=== PATIENT | male | born 1970 | race Caucasian/White ===

== ENCOUNTER 2020-10-27 11:02 | Emergency (ER) | payer OTHER ==
[~2020-10-27] VITALS: Ht 180 cm; Wt 82.0 kg
--- NOTE | 2020-10-27 11:26 | ED Dyspnea ---
General Stated Complaint: SOB; COVID+ Source of Information: Patient Exam Limitations: No Limitations History of Present Illness Date Seen by Provider: Oct 27, 2020 Time Seen by Provider: 11:10 Initial Comments 50-year-old male with past medical history of hypertension coming in due to feeling short of breath. He began having fevers, body aches, and cough on October 17. He tested positive for Covid at a walk-in clinic the next day on the . Slowly improved and he has not had a fever for a couple days. Yesterday he began feeling more short of breath, and today it was worse. He calls it moderate to severe, worse with exertion, better with rest. He has never felt this way before. He is a non-smoker, and states he has healthy lungs that he knows of. Otherwise denying any recent fever, nausea, vomiting, diarrhea, abdominal pain, chest pain, focal weakness or numbness, or any other concerns. Allergies and Home Medications Allergies Coded Allergies: No Known Drug Allergies (Unverified , 10/27/20) Home Medications Dexamethasone 6 Mg Tablet, 6 MG PO DAILY Prescribed by: YUMIKO MIRZA on 10/27/20 4209 Patient Home Medication List Home Medication List Reviewed: Yes Review of Systems Review of Systems Constitutional: chills; No fever; malaise EENTM: No blurred vision Respiratory: cough, short of breath Cardiovascular: No chest pain Gastrointestinal: No abdominal pain, No constipation, No diarrhea, No nausea, No vomiting Genitourinary: No dysuria, No frequency Musculoskeletal: No back pain Skin: No rash Psychiatric/Neurological: Denies Anxiety, Denies Depressed Endocrine: No Symptoms Reported Hematologic/Lymphatic: No Symptoms Reported All Other Systems Reviewed Negative Unless Noted: Yes Past Dbtheje-Kadnfh-Ehpyct Hx Patient Social History Tobacco Use?: No Substance use?: No Alcohol Use?: Yes Alcohol Frequency: Once in a while Past Medical History Surgeries: Yes (R shoulder surgery) Physical Exam Vital Signs Vital Signs - First Documented 10/27/20 10/27/20 11:31 12:30 Temp 36.6 Pulse 100 Resp 18 B/P (MAP) 105/63 (77) Pulse Ox 88 O2 Delivery Room Air O2 Flow Rate 2.00 Capillary Refill : Height, Weight, BMI Height: '" Weight: lbs. oz. kg; BMI Method: General Appearance: No Apparent Distress, WD/WN HEENT: PERRL/EOMI, Normal ENT Inspection, Pharynx Normal Neck: Full Range of Motion, Normal Inspection, Non Tender, Supple Respiratory: Chest Non Tender, No Accessory Muscle Use, No Respiratory Distress, Crackles, Other Cardiovascular: Regular Rate, Rhythm, No Edema, Normal Peripheral Pulses Gastrointestinal: Normal Bowel Sounds, Non Tender, Soft; No Distended, No Gu arding Extremity: Normal Capillary Refill, Normal Inspection, Non Tender, No Calf Tenderness Neurologic/Psychiatric: Alert, Oriented x3, No Motor/Sensory Deficits, Normal Mood/Affect Skin: Normal Color, Warm/Dry Lymphatic: No Adenopathy Focused Exam Sepsis Stage: Ruled Out Reason for ruling out sepsis: not hypotensive, not febrile, WBC 7, SOB but has COVID which fits Lactate Level 10/27/20 11:27: Lactic Acid Level 2.20*H 10/27/20 13:40: Lactic Acid Level 1.70 Respiratory: Chest Non Tender, No Accessory Muscle Use, No Respiratory Distress, Crackles Cardiovascular: Regular Rate, Rhythm, No Edema, Normal Peripheral Pulses Capillary Refill: Less Than 3 Seconds Peripheral Pulses: 2+ Radial Pulses (R), 2+ Radial Pulses (L) Skin: normal color, warm/dry Lactic Acid Level Laboratory Tests Test 10/27/20 11:27 10/27/20 13:40 Lactic Acid Level 2.20 MMOL/L (0.50-2.00) *H 1.70 MMOL/L (0.50-2.00) Within 3hrs of presentation: Other (lactate was ordered with COVID protocol, slightly elevated at 2.2, given IVF but not full 30cc/kg as I do not believe he is septic at this time) Progress/Results/Core Measures Results/Orders Lab Results Laboratory Tests Test 10/27/20 11:27 10/27/20 13:40 Range/Units White Blood Count 7.0 4.3-11.0 10^3/uL Red Blood Count 5.27 4.30-5.52 10^6/uL Hemoglobin 17.0 13.3-17.7 g/dL Hematocrit 48 40-54 % Mean Corpuscular Volume 92 80-99 fL Mean Corpuscular Hemoglobin 32 25-34 pg Mean Corpuscular Hemoglobin Concent 35 32-36 g/dL Red Cell Distribution Width 12.2 10.0-14.5 % Platelet Count 161 130-400 10^3/uL Mean Platelet Volume 10.1 9.0-12.2 fL Immature Granulocyte % (Auto) 1 % Neutrophils (%) (Auto) 82 H 42-75 % Lymphocytes (%) (Auto) 12 12-44 % Monocytes (%) (Auto) 6 0-12 % Eosinophils (%) (Auto) 0 0-10 % Basophils (%) (Auto) 0 0-10 % Neutrophils # (Auto) 5.8 1.8-7.8 X 10^3 Lymphocytes # (Auto) 0.8 L 1.0-4.0 X 10^3 Monocytes # (Auto) 0.4 0.0-1.0 X 10^3 Eosinophils # (Auto) 0.0 0.0-0.3 10^3/uL Basophils # (Auto) 0.0 0.0-0.1 10^3/uL Immature Granulocyte # (Auto) 0.0 0.0-0.1 10^3/uL Prothrombin Time 13.1 12.2-14.7 SEC INR Comment 1.0 0.8-1.4 Activated Partial Thromboplast Time 28 24-35 SEC D-Dimer 1.61 H 0.00-0.49 UG/ML Sodium Level 129 L 135-145 MMOL/L Potassium Level 4.2 3.6-5.0 MMOL/L Chloride Level 90 L 98-107 MMOL/L Carbon Dioxide Level 22 21-32 MMOL/L Anion Gap 17 H 5-14 MMOL/L Blood Urea Nitrogen 33 H 7-18 MG/DL Creatinine 1.65 H 1.50 H 0.60-1.30 MG/DL Estimat Glomerular Filtration Rate 44 49 BUN/Creatinine Ratio 20 Glucose Level 117 H 70-105 MG/DL Lactic Acid Level 2.20 *H 1.70 0.50-2.00 MMOL/L Calcium Level 8.5 8.5-10.1 MG/DL Corrected Calcium 8.8 8.5-10.1 MG/DL Total Bilirubin 0.5 0.1-1.0 MG/DL Aspartate Amino Transf (AST/SGOT) 69 H 5-34 U/L Alanine Aminotransferase (ALT/SGPT) 42 0-55 U/L Alkaline Phosphatase 59 40-136 U/L Troponin I < 0.30 <0.30 NG/ML C-Reactive Protein 13.40 H <0.50 MG/DL Total Protein 6.9 6.4-8.2 GM/DL Albumin 3.6 3.2-4.5 GM/DL Smear Scan OK My Orders Orders - YUMIKO MIRZA MD Vital Signs: Every 4 Hours (Or (10/27/20 11:26) Monitor-Rhythm Ecg Trace Only (10/27/20 11:) Ed Iv/Invasive Line Start (10/27/20:) Cbc With Automated Diff (10/27/20) Comprehensive Metabolic Panel (10/27/20) Ferritin (10/27/20:) LDH (10/27/20:) Crp Fs (10/27/20) Troponin I Fs (10/27/20:) Lactic Acid Analyzer (10/27/20:) Protime With Inr (10/27/20:) Partial Thromboplastin Time (10/27/20:) Fibrin Degradation Products (10/27/20:) Fibrinogen (10/27/20:) Ekg Tracing (10/27/20:) Acetaminophen Tablet/Caplet (Tylenol T (10/27/20 11:30) Covid-19 External Lab Results (10/27/20 11:) Dexamethasone Injection (Decadron Injec (10/27/20 11:30) Chest 1 View Ap/Pa Only (10/27/20 11:26) Lactated Ringers (Lr 1000 Ml Iv Solution (10/27/20 12:15) Procalcitonin (Pct) (10/27/20 12:11) Ct Angio Chest W (10/27/20 12:13) Iohexol Injection (Omnipaque 350 Mg/Ml 1 (10/27/20 12:30) Received Contrast (Hold Metformin- Contr (10/27/20 12:30) Sodium Chloride Flush (Catheter Flush Sy (10/27/20 12:30) Ns (Ivpb) (Sodium Chloride 0.9% Ivpb Bag (10/27/20 12:30) Lactated Ringers (Lr 1000 Ml Iv Solution (10/27/20 12:45) Creatinine & Gfr (10/27/20 13:30) Blood Culture (10/27/20 13:08) Medications Given in ED Current Medications Medications Dose Ordered Sig/Brigette Route Start Time Stop Time Status Last Admin Dose Admin Acetaminophen 650 mg ONCE ONCE PO 10/27/20 11:30 10/27/20 11:31 DC 10/27/20 11:36 650 MG Dexamethasone Sodium Phosphate 6 mg ONCE ONCE IV 10/27/20 11:30 10/27/20 11:31 DC 10/27/20 11:36 6 MG Iohexol 100 ml ONCE ONCE IV 10/27/20 12:30 10/27/20 12:31 DC 10/27/20 12:45 100 ML Lactated Ringer's 1,000 ml @ 0 mls/hr Q0M ONCE IV 10/27/20 12:15 10/27/20 12:16 DC 10/27/20 12:17 1,000 MLS/HR Lactated Ringer's 1,000 ml @ 0 mls/hr Q0M ONCE IV 10/27/20 12:45 10/27/20 12:48 DC 10/27/20 12:45 1,000 MLS/HR Sodium Chloride 10 ml NEEDED PRN IV 10/27/20 12:30 10/27/20 12:45 10 ML Sodium Chloride 100 ml ONCE ONCE IV 10/27/20 12:30 10/27/20 12:31 DC 10/27/20 12:45 100 ML Vital Signs/I&O 10/27/20 10/27/20 10/27/20 11:31 12:30 14:34 Temp 36.6 36.5 Pulse 100 79 Resp 18 16 B/P (MAP) 105/63 (77) 122/68 Pulse Ox 88 97 94 O2 Delivery Room Air Nasal Cannula Nasal Cannula O2 Flow Rate 2.00 2.00 Progress Progress Note : Progress Note 50-year-old male with above history coming in due to feeling short of breath. ABCs were intact and vitals were stable on presentation other than his oxygen saturation was around 87 to 88%. He was placed on 2 L oxygen with improvement to 94%. EKG ordered and interpreted by me showing normal sinus rhythm with a rate of 94, normal axis, narrow QRS, no significant ST or T wave abnormalities. Chest x-ray ordered and interpreted by me showing bilateral hazy opacities consistent with Covid. Basic labs as well as typical Covid management labs ordered. Given he is hypoxic and on oxygen he was given steroids. Labs significant for white blood count of 7, lactate slightly elevated at 2.2, negative troponin, elevated CRP, and elevated creatinine with an BOB. An IV was placed and he was given a bolus of IV fluids given his elevated lactic acid. Despite his elevated lactic acid, I do not believe the patient is septic. He is not febrile, has a normal white blood count, and has other reasoning to have an elevated lactic acid. Specifically, he has Covid and has had significantly decreased p.o. over the past week. He was given a bolus of IV fluids, but not the full 30 cc/kg, because I believe he does not need that at this time. Repeat lactate is normal. Repeat creatinine improved, and he is tolerating PO, so I believe this number will continue to improve. D-dimer was positive, and CTA was ordered at that time to assess for PE which was negative. The patient did transiently improve with fluids and the steroids. His oxygen requirements went down at that point and he was tolerating room air for roughly an hour around 92%. With ambulation he dropped back down to roughly 88%. Given the status of the hospital system, I believe it is appropriate for him to be discharged home if he has the ability to get home oxygen. I will order home oxygen for him as well as sent a prescription for steroids. I discussed that he needs to buy a pulse oximeter, and if while on oxygen his oxygen saturation is in the 80s he needs to call 911 or have someone immediately drive him to the emergency department. He is agreeable to this. I discussed if his symptoms worsen, develops any chest pain, or any other concerns that he should immediately return here. I believe he is stable at this time, although it is always possible he would worsen and need to come back. I do believe it is appropriate for him to go home though. He was discharged with strict return precautions. Initial ECG Impression Date: Oct 27, 2020 Initial ECG Impression Time: 11:32 Initial ECG Rate: 94 Initial ECG Rhythm: Normal Sinus Comment Narrow QRS, normal axis, no significant ST changes or T wave abnormalities Diagnostic Imaging Diagonstic Imaging: CT Plain Films/CT/US/NM/MRI: chest Comments [facility] [place], [place] NAME: EM[facility] JONES [facility] REC#: [id number] PT STATUS: REG ER : 1970 PHYSICIAN: YUMIKO MIRZA MD ADMIT DATE: 10/27/20/ER FS Draft Date of Exam:10/27/20 CT ANGIO CHEST W PROCEDURE: CT angiography of the chest with contrast. TECHNIQUE: Multiple contiguous axial images were obtained through the chest after uneventful bolus administration of intravenous contrast. 3D reconstructed CTA MIP acquisitions were also performed. Auto Exposure Controls were utilized during the CT exam to meet ALARA standards for radiation dose reduction. INDICATION: Shortness of breath. Patient is COVID 19 positive. Patient also has elevated d-dimer. No prior studies are available for comparison. Evaluation of the pulmonary arterial system is without thromboembolism. No filling defects are seen within central, segmental branches. Thoracic aorta is normal caliber. As no dissection. No pericardial or pleural fluid is identified. No axillary lymphadenopathy is identified. No definite mediastinal or hilar lymphadenopathy is detected. Parenchymal evaluation does show peripheral groundglass infiltrates bilateral upper lobes as well as bilateral lower lobes consistent with COVID 19 pneumonia. Imaging below the diaphragm does show some circumscribed low low-attenuation lesions in the liver consistent with cysts. IMPRESSION: 1. No evidence of pulmonary embolism or thoracic aortic dissection. 2. Diffuse bilateral groundglass pulmonary infiltrates consistent with COVID 19 pneumonia. Report was faxed to [facility] by sagar at 1:00PM. Dictated on workstation # [id number] Dict: 10/27/20 1249 Trans: 10/27/20 1300 SAGAR [id number] Interpreted by: ORQUIDEA HOGAN MD Electronically signed by: Departure Impression Primary Impression: COVID Additional Impressions: Hypoxia BOB (acute kidney injury) Disposition: 01 HOME, SELF-CARE Condition: Stable Departure-Patient Inst. Decision time for Depature: 14:40 Referrals: BESSIE THRASHER APRN (PCP) Primary Care Physician [facility] (Family) Primary Care Physician Patient Instructions: Acute Kidney Injury (DC), COVID-19 (DC), Oxygen Therapy, Adult (DC) Add. Discharge Instructions: You were seen in the emergency department because you were feeling short of breath. Your oxygen was a little low, and was around 88% when he got here. We put you on 2 L oxygen and you improved. Your kidney function was a little down, and it shows that you are a little dehydrated, so we gave you IV fluids as well. I want you to purchase a pulse oximeter at [facility] and check your oxygen every couple hours while awake. If you are 89% or lower consistently even after resting while on oxygen, then you will need to call 911 or have [address] drive you to the ER. If you find you are needing to turn up your oxygen to 4 or 6 liters to keep your oxygen levels above 90% then you should come in to the ER to be rechecked. Scripts Dexamethasone (Decadron) 6 Mg Tablet 6 MG PO DAILY for 7 Days, #7 TAB 0 Refills Prov: YUMIKO MIRZA MD 10/27/20 YUMIKO MIRZA MD Oct 27, 2020 11:26
[2020-10-27] MEDS ORDERED: ACETAMINOPHEN 325 MG TABLET PO ONE (11:30)
[2020-10-27 11:41] LABS: HEMATOCRIT 48 % (40-54); MEAN CORPUSCULAR HEMOGLOBIN 32 pg (25-34); MEAN CORPUSCULAR HGB CONC 35 g/dL (32-36); MEAN CORPUSCULAR VOLUME 92 fL (80-99); PLATELET COUNT 161 10^3/uL (130-400)
[2020-10-27 11:42] LABS: BASOPHILS % (AUTO) 0 % (0-10); EOSINOPHILS % (AUTO) 0 % (0-10); LYMPHOCYTES # (AUTO) 0.8 X 10^3 (1.0-4.0); LYMPHOCYTES % (AUTO) 12 % (12-44); MEAN PLATELET VOLUME 10.1 fL (9.0-12.2); MONOCYTES # (AUTO) 0.4 X 10^3 (0.0-1.0); MONOCYTES % (AUTO) 6 % (0-12); NEUTROPHILS # (AUTO) 5.8 X 10^3 (1.8-7.8); NEUTROPHILS % (AUTO) 82 % (42-75)
--- NOTE | 2020-10-27 11:56 | Diagnostic Imaging Report ---
EXAMINATION: Chest radiograph, portable AP view. DATE: 10/27/2020 11:42 AM INDICATION: 50-year-old male, shortness of breath. COVID positive. COMPARISON: None. FINDINGS: Heart size and mediastinal contours are unremarkable. There is no identified pneumothorax. There is no large pleural effusion. There is multifocal bilateral lung consolidation. IMPRESSION: 1. Multifocal bilateral lung consolidation which would be consistent with provided history of COVID 19 infection and multifocal pneumonia/pneumonitis although is not a specific imaging appearance. Report was faxed to [facility] by len at 11:56AM. Dictated by: Dictated on workstation # [id number]
[2020-10-27 11:58] LABS: SMEAR SCAN COMMENT OK; SODIUM 129 MMOL/L (135-145)
[2020-10-27 11:59] LABS: ALANINE AMINOTRANSFERASE 42 U/L (0-55); ALKALINE PHOSPHATASE 59 U/L (40-136); BILIRUBIN,TOTAL 0.5 MG/DL (0.1-1.0); BUN/CREATININE RATIO 20; CALCIUM 8.5 MG/DL (8.5-10.1); CARBON DIOXIDE 22 MMOL/L (21-32); CHLORIDE 90 MMOL/L (98-107); CREATININE SERUM 1.65 MG/DL (0.60-1.30); GFR ESTIMATED 44; GLUCOSE 117 MG/DL (70-105); POTASSIUM 4.2 MMOL/L (3.6-5.0); TOTAL PROTEIN 6.9 GM/DL (6.4-8.2)
[2020-10-27 12:00] LABS: ALBUMIN 3.6 GM/DL (3.2-4.5)
[2020-10-27 12:01] LABS: PROTHROMBIN TIME PATIENT 13.1 SEC (12.2-14.7)
[2020-10-27 12:02] LABS: FIBRIN DEGRADATION PRODUCTS 1.61 UG/ML (0.00-0.49)
[2020-10-27] MEDS ORDERED: LACTATED RINGERS 1,000 ML IV ONE ×2 (12:15→12:45)
[2020-10-27] MEDS ORDERED: NS 100 ML (IVPB) BAG IV ONE (12:30)
[2020-10-27] MEDS ORDERED: IOHEXOL 350 MG/ML 100 ML (OMNIPAQUE 350) VIAL IV ONE (12:30)
[2020-10-27] MEDS ORDERED: CATHETER FLUSH 10 ML SYR IV PRN (12:30)
[2020-10-27] MEDS ORDERED: HOLD METFORMIN - RECEIVED CONTRAST 20 ML VIAL IV SCH (12:30)
--- NOTE | 2020-10-27 13:00 | Diagnostic Imaging Report ---
PROCEDURE: CT angiography of the chest with contrast. TECHNIQUE: Multiple contiguous axial images were obtained through the chest after uneventful bolus administration of intravenous contrast. 3D reconstructed CTA MIP acquisitions were also performed. Auto Exposure Controls were utilized during the CT exam to meet ALARA standards for radiation dose reduction. INDICATION: Shortness of breath. Patient is COVID 19 positive. Patient also has elevated d-dimer. No prior studies are available for comparison. Evaluation of the pulmonary arterial system is without thromboembolism. No filling defects are seen within central, segmental branches. Thoracic aorta is normal caliber. As no dissection. No pericardial or pleural fluid is identified. No axillary lymphadenopathy is identified. No definite mediastinal or hilar lymphadenopathy is detected. Parenchymal evaluation does show peripheral groundglass infiltrates bilateral upper lobes as well as bilateral lower lobes consistent with COVID 19 pneumonia. Imaging below the diaphragm does show some circumscribed low low-attenuation lesions in the liver consistent with cysts. IMPRESSION: 1. No evidence of pulmonary embolism or thoracic aortic dissection. 2. Diffuse bilateral groundglass pulmonary infiltrates consistent with COVID 19 pneumonia. Report was faxed to [facility] by len at 1:00PM. Dictated by: Dictated on workstation # [id number]
[2020-10-27 14:06] LABS: CREATININE SERUM 1.5 MG/DL (0.60-1.30)
[2020-10-27] MEDS ORDERED: DEXA6TAB6 PO (14:07)
[2020-10-27 14:34] VITALS: BP 122/68
== END 2020-10-27 14:45 | disposition home or self-care (01) ==
LOC: ER FS 11:04
DX: U07.1 COVID-19 (principal); R09.02 Hypoxemia; N17.9 Acute kidney failure, unspecified; I10 Essential (primary) hypertension
CPT/HCPCS: 36415; 71045; 71275; 80053; 82565; 82728; 83605; 83615; 84145; 84484; 85025; 85379; 85384; 85610; 85730; 86141; 87040; 93005; 93041

== ENCOUNTER 2020-10-31 11:37 | Emergency (ER) | payer OTHER ==
[~2020-10-31] VITALS: Ht 180 cm; Wt 82.0 kg
[~2020-10-31 11:37] MED LIST: DEXA6TAB6 PO
[2020-10-31] MEDS ORDERED: AZITHROMYCIN INJECTION 500 MG in NS (IVPB) 250 ML IV ONE (12:00)
[2020-10-31] MEDS ORDERED: ACETAMINOPHEN 325 MG TABLET PO ONE (12:00)
[2020-10-31] MEDS ORDERED: LACTATED RINGERS 1,000 ML IV SCH (12:00)
[2020-10-31] MEDS ORDERED: cefTRIAXone 1,000 MG in WATER (STERILE) FOR INJECTION 10 ML IV ONE (12:00)
--- NOTE | 2020-10-31 12:03 | ED Respiratory ---
General Chief Complaint: Respiratory Problems Stated Complaint: HYPOXIA, COVID+ Source: patient, family Exam Limitations: no limitations History of Present Illness Date Seen by Provider: Oct 31, 2020 Time Seen by Provider: 11:40 Initial Comments 50-year-old male with no significant past medical history that was previously seen by me last week for Covid symptoms. In brief, symptomatic on the , tested positive at an outside facility on the . Symptoms lately have just been cough and shortness of breath. I discharged him on after setting him up with home oxygen given he only required roughly 2 L intermittently. He was discharged with steroids at that time given the oxygen requirement. He stat es he bought an oxygen probe and has been frequently testing his vitals. He says his saturation has ranged between the 70s to 90s. This morning he states he was unable to get his oxygen above the 80s despite having it turned as high up as he could. He is unsure of how many liters this was, because he states he was confused on the system. EMS reports his oxygen was in the low 80s on their arrival. They gave him a DuoNeb en route. He denies any structural lung disease such as COPD. Is otherwise denying any other acute complaints. Allergies and Home Medications Allergies Coded Allergies: No Known Drug Allergies (Unverified , 10/27/20) Home Medications Dexamethasone 6 Mg Tablet, 6 MG PO DAILY Prescribed by: YUMIKO MIRZA on 10/27/20 8044 Patient Home Medication List Home Medication List Reviewed: Yes Review of Systems Review of Systems Constitutional: chills; No fever EENTM: No blurred vision Respiratory: cough, short of breath Cardiovascular: No chest pain Gastrointestinal: No abdominal pain Genitourinary: No dysuria Musculoskeletal: No back pain Skin: No rash Psychiatric/Neurological: Denies Anxiety Hematologic/Lymphatic: No Symptoms Reported Immunological/Allergic: no symptoms reported All Other Systems Reviewed Negative Unless Noted: Yes Past Pocohpm-Mgdddt-Ezlhyx Hx Patient Social History Tobacco Use?: No Use of E-Cig and/or Vaping dev: No Substance use?: No Alcohol Use?: Yes Alcohol Frequency: Once in a while Past Medical History Surgery/Hospitalization HX: Denies Surgeries: Yes (R shoulder surgery) Physical Exam Vital Signs - First Documented 10/31/20 12:00 Temp 37.2 Pulse 123 Resp 37 B/P (MAP) 134/67 (89) Pulse Ox 93 O2 Delivery Nasal Cannula O2 Flow Rate 2.00 Capillary Refill : Height: '" Weight: lbs. oz. kg; 25.00 BMI Method: General Appearance: WD/WN, no apparent distress HEENT: PERRL/EOMI, normal ENT inspection, pharynx normal Neck: non-tender, full range of motion, supple, normal inspection Respiratory: chest non-tender, no accessory muscle use, crackles, other (tachypnea) Cardiovascular: no edema, no murmur, tachycardia Gastrointestinal: normal bowel sounds, non tender, soft; No distended, No guarding, No rebound Extremities: normal range of motion, non-tender, normal inspection, no pedal edema, no calf tenderness Neurologic/Psychiatric: no motor/sensory deficits, alert, normal mood/affect Skin: normal color, warm/dry Lymphatic: no adenopathy Focused Exam Lactate Level 10/31/20 11:52: Lactic Acid Level 2.50*H 10/31/20 13:49: Lactic Acid Level 2.69*H Lactic Acid Level Laboratory Tests Test 10/31/20 11:52 10/31/20 13:49 Lactic Acid Level 2.50 MMOL/L (0.50-2.00) *H 2.69 MMOL/L (0.50-2.00) *H Progress/Results/Core Measures Suspected Sepsis SIRS Temperature: Pulse: Respiratory Rate: Laboratory Tests 10/31/20 11:52: White Blood Count 11.3H Blood Pressure / Mean: 10/31/20 11:52: Lactic Acid Level 2.50*H 10/31/20 13:49: Lactic Acid Level 2.69*H Laboratory Tests 10/31/20 11:52: Creatinine 1.03, INR Comment 1.2, Platelet Count 234, Total Bilirubin 0.8 Results/Orders Lab Results Laboratory Tests Test 10/31/20 11:52 10/31/20 13:49 Range/Units White Blood Count 11.3 H 4.3-11.0 10^3/uL Red Blood Count 4.81 4.30-5.52 10^6/uL Hemoglobin 15.5 13.3-17.7 g/dL Hematocrit 45 40-54 % Mean Corpuscular Volume 93 80-99 fL Mean Corpuscular Hemoglobin 32 25-34 pg Mean Corpuscular Hemoglobin Concent 35 32-36 g/dL Red Cell Distribution Width 12.4 10.0-14.5 % Platelet Count 234 130-400 10^3/uL Mean Platelet Volume 9.8 9.0-12.2 fL Immature Granulocyte % (Auto) 1 % Neutrophils (%) (Auto) 91 H 42-75 % Lymphocytes (%) (Auto) 4 L 12-44 % Monocytes (%) (Auto) 4 0-12 % Eosinophils (%) (Auto) 0 0-10 % Basophils (%) (Auto) 0 0-10 % Neutrophils # (Auto) 10.3 H 1.8-7.8 X 10^3 Lymphocytes # (Auto) 0.4 L 1.0-4.0 X 10^3 Monocytes # (Auto) 0.4 0.0-1.0 X 10^3 Eosinophils # (Auto) 0.0 0.0-0.3 10^3/uL Basophils # (Auto) 0.0 0.0-0.1 10^3/uL Immature Granulocyte # (Auto) 0.2 H 0.0-0.1 10^3/uL Neutrophils % (Manual) 89 % Lymphocytes % (Manual) 3 % Monocytes % (Manual) 5 % Band Neutrophils 3 % Blood Morphology Comment NORMAL Prothrombin Time 15.8 H 12.2-14.7 SEC INR Comment 1.2 0.8-1.4 Activated Partial Thromboplast Time 28 24-35 SEC Fibrinogen 570 H 221-496 MG/DL D-Dimer > 20.00 H 0.00-0.49 UG/ML Sodium Level 133 L 135-145 MMOL/L Potassium Level 4.2 3.6-5.0 MMOL/L Chloride Level 99 98-107 MMOL/L Carbon Dioxide Level 21 21-32 MMOL/L Anion Gap 13 5-14 MMOL/L Blood Urea Nitrogen 19 H 7-18 MG/DL Creatinine 1.03 0.60-1.30 MG/DL Estimat Glomerular Filtration Rate 76 BUN/Creatinine Ratio 18 Glucose Level 243 H 70-105 MG/DL Lactic Acid Level 2.50 *H 2.69 *H 0.50-2.00 MMOL/L Calcium Level 8.1 L 8.5-10.1 MG/DL Corrected Calcium 8.9 8.5-10.1 MG/DL Total Bilirubin 0.8 0.1-1.0 MG/DL Aspartate Amino Transf (AST/SGOT) 46 H 5-34 U/L Alanine Aminotransferase (ALT/SGPT) 65 H 0-55 U/L Alkaline Phosphatase 61 40-136 U/L Lactate Dehydrogenase 679 H 125-220 U/L Troponin I < 0.30 <0.30 NG/ML C-Reactive Protein 24.86 H <0.50 MG/DL Total Protein 6.4 6.4-8.2 GM/DL Albumin 3.0 L 3.2-4.5 GM/DL Procalcitonin 0.17 H <0.10 NG/ML My Orders Orders - YUMIKO MIRZA MD Vital Signs: Every 4 Hours (Or (10/31/20 11:46) Monitor-Rhythm Ecg Trace Only (10/31/20 11:46) Ed Iv/Invasive Line Start (10/31/20 11:46) Cbc With Automated Diff (10/31/20 11:46) Comprehensive Metabolic Panel (10/31/20 11:46) Ferritin (10/31/20 11:46) LDH (10/31/20 11:46) Crp Fs (10/31/20 11:46) Troponin I Fs (10/31/20 11:46) Lactic Acid Analyzer (10/31/20 11:46) Protime With Inr (10/31/20 11:46) Partial Thromboplastin Time (10/31/20 11:46) Fibrin Degradation Products (10/31/20 11:46) Fibrinogen (10/31/20 11:46) Ekg Tracing (10/31/20 11:46) Lactated Ringers (Lr 1000 Ml Iv Solution (10/31/20 12:00) Acetaminophen Tablet/Caplet (Tylenol T (10/31/20 12:00) Procalcitonin (Pct) (10/31/20 11:46) Blood Culture (10/31/20 11:46) Chest 1 View Ap/Pa Only (10/31/20 11:46) Ceftriaxone (Rocephin) (10/31/20 12:00) Azithromycin Injection (Zithromax Inject (10/31/20 12:00) Manual Differential (10/31/20 11:52) Lactated Ringers (Lr 1000 Ml Iv Solution (10/31/20 12:45) Ct Angio Chest W (10/31/20 13:18) Iohexol Injection (Omnipaque 350 Mg/Ml 1 (10/31/20 14:00) Received Contrast (Hold Metformin- Contr (10/31/20 14:00) Sodium Chloride Flush (Catheter Flush Sy (10/31/20 14:00) Ns (Ivpb) (Sodium Chloride 0.9% Ivpb Bag (10/31/20 14:00) Covid-19 External Lab Results (10/31/20 13:58) Medications Given in ED Current Medications Medications Dose Ordered Sig/Brigette Route Start Time Stop Time Status Last Admin Dose Admin Acetaminophen 650 mg ONCE ONCE PO 10/31/20 12:00 10/31/20 12:01 DC 10/31/20 12:10 650 MG Azithromycin 500 mg/Sodium Chloride 255 ml @ 250 mls/hr ONCE ONCE IV 10/31/20 12:00 10/31/20 13:01 DC 10/31/20 12:16 250 MLS/HR Ceftriaxone Sodium 1000 mg/ Sterile Water 10 ml @ 200 mls/hr ONCE ONCE IV 10/31/20 12:00 10/31/20 12:02 DC 10/31/20 12:10 200 MLS/HR Iohexol 100 ml ONCE ONCE IV 10/31/20 14:00 10/31/20 14:01 DC 10/31/20 14:13 100 ML Lactated Ringer's 1,250 ml @ 1,250 mls/hr PRN PRN IV 10/31/20 12:45 10/31/20 15:30 DC 10/31/20 13:33 1,250 MLS/HR Sodium Chloride 10 ml NEEDED PRN IV 10/31/20 14:00 10/31/20 15:30 DC 10/31/20 14:13 10 ML Sodium Chloride 100 ml ONCE ONCE IV 10/31/20 14:00 10/31/20 14:01 DC 10/31/20 14:13 100 ML Vital Signs/I&O 10/31/20 10/31/20 12:00 12:10 Temp 37.2 37.2 Pulse 123 Resp 37 B/P (MAP) 134/67 (89) Pulse Ox 93 O2 Delivery Nasal Cannula O2 Flow Rate 2.00 Capillary Refill : Progress Note : Progress Note 50-year-old male with above history coming in more hypoxic in the setting of being Covid positive. He was able to be titrated down to 2 L oxygen once he was at rest. He does desat with movement despite being on oxygen. Chest x-ray with worsening infiltrates. Given we do not have a pro calcitonin to further restratify him for bacterial pneumonia, he was given empiric ceftriaxone and azithromycin. D-dimer ordered and was greater than 20. CTA been ordered. On my interpretation I do not see any large saddle pulmonary embolus. Creatinine improved from his previous emergency department stay. Lactate was slightly elevated and he received roughly 2 and half liters of IV fluids given he still is not taking in much p.o. at home. Repeat lactate slightly trended up at 2.6. I reexamined the patient and he appears to be adequately fluid resuscitated. His creatinine is improved from his previous during his last ED stay. His vitals have improved since being here. I believe this is driven by Covid and I do not believe more aggressive fluid management would be beneficial to his respiratory status. Given he is having worsening hypoxia at home despite his oxygen, he will need to be admitted to the hospital for further evaluation. I discussed the case with Dr. Rocha who is on-call for [facility] and she agreed to take the patient to [facility]. ECG Initial ECG Impression Date: Oct 31, 2020 Initial ECG Impression Time: 11:56 Initial ECG Rate: 114 Initial ECG Rhythm: S.Tach Comment Narrow QRS, borderline normal axis to left axis deviation, no significant ST changes or T wave abnormalities Diagnostic Imaging Diagonstic Imaging: CT Plain Films/CT/US/NM/MRI: chest Comments [facility] [place] [place] NAME: EM[facility] JONES [facility] REC#: [id number] PT STATUS: REG ER : 1970 PHYSICIAN: YUMIKO MIRZA MD ADMIT DATE: 10/31/20/ER FS Draft Date of Exam:10/31/20 CT ANGIO CHEST W EXAMINATION: CT angiography of the chest. TECHNIQUE: Contrast enhanced thin section helical images were obtained through the chest with intravenous contrast timed for the optimal opacification of the arterial structures per CTA protocol. Post-processing, reconstructions and interpretation of angiographic images of the vessels was performed. 3D MIP reconstructions were performed and reviewed. All CT scans use one or more of the following dose optimizing techniques: automated exposure control, MA and/or KvP adjustment based on a patient size and exam type, or iterative reconstruction. HISTORY: COVID, more hypoxic, undetectable d-dimer COMPARISON: CTA chest from 10/27/2020. FINDINGS: Vascular: No filling defects within the pulmonary arteries. Thoracic aorta is normal in caliber. Thyroid: The thyroid is normal. Mediastinum: Heart size is normal without significant pericardial effusion. No suspicious lymphadenopathy. Lungs and airways: Patchy groundglass opacities are seen throughout both lungs. No pleural effusion or pneumothorax. The airways are normal. Upper abdomen: The subphrenic structures are normal. A hepatic cyst is present. Musculoskeletal: No suspicious osseous lesion or compression fracture. IMPRESSION: 1. No findings of pulmonary embolus. 2. Patchy groundglass consolidation throughout both lungs, compatible with history of COVID-19 pneumonia. Dictated on workstation # [id number] Dict: 10/31/20 1422 Trans: 10/31/20 1434 [id number] Interpreted by: KHUSHBU SHARMA DO Electronically signed by: Departure Impression Primary Impression: COVID-19 Additional Impression: Respiratory failure Qualified Codes: J96.01 - Acute respiratory failure with hypoxia Disposition: XFER SHT-TRM HOSP Condition: Stable Transfer Transfer Reason: Diversion Time Spoke to Accepting Phy: 14:20 Transfer Progress Notes Discussed with Dr. Rocha who is on-call for the patient's primary care doctor, and given the bed status at [facility], she will accept the patient to [facility] as the primary physician. Transfer Time: 15:30 Transfer Facility: [facility] Method of Transfer: EMS Departure-Patient Inst. Referrals: BESSIE THRASHER APRN (PCP) Primary Care Physician [facility] (Family) Primary Care Physician YUMIKO MIRZA MD Oct 31, 2020 12:03
[2020-10-31 12:22] LABS: BASOPHILS % (AUTO) 0 % (0-10); EOSINOPHILS % (AUTO) 0 % (0-10); HEMATOCRIT 45 % (40-54); HEMOGLOBIN 15.5 g/dL (13.3-17.7); LYMPHOCYTES % (AUTO) 4 % (12-44); MEAN CORPUSCULAR HEMOGLOBIN 32 pg (25-34); MEAN CORPUSCULAR HGB CONC 35 g/dL (32-36); MEAN CORPUSCULAR VOLUME 93 fL (80-99); MEAN PLATELET VOLUME 9.8 fL (9.0-12.2); MONOCYTES % (AUTO) 4 % (0-12); NEUTROPHILS % (AUTO) 91 % (42-75); PLATELET COUNT 234 10^3/uL (130-400); WHITE BLOOD COUNT 11.3 10^3/uL (4.3-11.0)
--- NOTE | 2020-10-31 12:22 | Diagnostic Imaging Report ---
INDICATION: Hypoxia and Covid-19 positive. TIME OF EXAM: 11:51 AM Correlation is made with prior chest from 10/27/2020. FINDINGS: Heart size normal. Patchy peripheral based airspace pulmonary infiltrates have increased since 4 days earlier. In particular, there is increasing consolidation in the left base. No effusion is identified. No pneumothorax. IMPRESSION: Increasing bilateral infiltrates consistent with worsening pneumonia when compared with exam 4 days earlier. Dictated by: Dictated on workstation # [id number]
[2020-10-31 12:23] LABS: LYMPHOCYTES # (AUTO) 0.4 X 10^3 (1.0-4.0); MONOCYTES # (AUTO) 0.4 X 10^3 (0.0-1.0); NEUTROPHILS # (AUTO) 10.3 X 10^3 (1.8-7.8)
[2020-10-31 12:32] LABS: NEUTROPHILS % (MANUAL) 89 %
[2020-10-31 12:33] LABS: BAND NEUTROPHILS 3 %; BUN/CREATININE RATIO 18; CARBON DIOXIDE 21 MMOL/L (21-32); CHLORIDE 99 MMOL/L (98-107); CREATININE SERUM 1.03 MG/DL (0.60-1.30); GFR ESTIMATED 76; GLUCOSE 243 MG/DL (70-105); LYMPHOCYTES % (MANUAL) 3 %; MONOCYTES % (MANUAL) 5 %; POTASSIUM 4.2 MMOL/L (3.6-5.0); RBC MORPH NORMAL; SODIUM 133 MMOL/L (135-145)
[2020-10-31 12:34] LABS: ALANINE AMINOTRANSFERASE 65 U/L (0-55); ALKALINE PHOSPHATASE 61 U/L (40-136); BILIRUBIN,TOTAL 0.8 MG/DL (0.1-1.0); CALCIUM 8.1 MG/DL (8.5-10.1); TOTAL PROTEIN 6.4 GM/DL (6.4-8.2)
[2020-10-31] MEDS ORDERED: LACTATED RINGERS IV PRN (12:45)
[2020-10-31 12:46] LABS: INR 1.2 (0.8-1.4); PARTIAL THROMBOPLASTIN TIME 28 SEC (24-35); PROTHROMBIN TIME PATIENT 15.8 SEC (12.2-14.7)
[2020-10-31 13:17] LABS: FIBRIN DEGRADATION PRODUCTS > 20.00 UG/ML (0.00-0.49)
[2020-10-31] MEDS ORDERED: NS 100 ML (IVPB) BAG IV ONE (14:00)
[2020-10-31] MEDS ORDERED: IOHEXOL 350 MG/ML 100 ML (OMNIPAQUE 350) VIAL IV ONE (14:00)
[2020-10-31] MEDS ORDERED: CATHETER FLUSH 10 ML SYR IV PRN (14:00)
[2020-10-31] MEDS ORDERED: HOLD METFORMIN - RECEIVED CONTRAST 20 ML VIAL IV SCH (14:00)
--- NOTE | 2020-10-31 14:34 | Diagnostic Imaging Report ---
EXAMINATION: CT angiography of the chest. TECHNIQUE: Contrast enhanced thin section helical images were obtained through the chest with intravenous contrast timed for the optimal opacification of the arterial structures per CTA protocol. Post-processing, reconstructions and interpretation of angiographic images of the vessels was performed. 3D MIP reconstructions were performed and reviewed. All CT scans use one or more of the following dose optimizing techniques: automated exposure control, MA and/or KvP adjustment based on a patient size and exam type, or iterative reconstruction. HISTORY: COVID, more hypoxic, undetectable d-dimer COMPARISON: CTA chest from 10/27/2020. FINDINGS: Vascular: No filling defects within the pulmonary arteries. Thoracic aorta is normal in caliber. Thyroid: The thyroid is normal. Mediastinum: Heart size is normal without significant pericardial effusion. No suspicious lymphadenopathy. Lungs and airways: Patchy groundglass opacities are seen throughout both lungs. No pleural effusion or pneumothorax. The airways are normal. Upper abdomen: The subphrenic structures are normal. A hepatic cyst is present. Musculoskeletal: No suspicious osseous lesion or compression fracture. IMPRESSION: 1. No findings of pulmonary embolus. 2. Patchy groundglass consolidation throughout both lungs, compatible with history of COVID-19 pneumonia. Dictated by: Dictated on workstation # [id number]
[2020-10-31 15:22] LABS: FIBRINOGEN 570 MG/DL (221-496)
[2020-10-31 15:28] VITALS: BP 123/77
== END 2020-10-31 15:28 | disposition short-term general hospital (02) ==
LOC: EDUNIT# 11:37 → ER FS 11:38
DX: U07.1 COVID-19 (principal); J96.90 Respiratory failure, unspecified, unspecified whether with hypoxia or hypercapnia
CPT/HCPCS: 36415; 71045; 71275; 80053; 82728; 83605; 83615; 84145; 84484; 85007; 85027; 85379; 85384; 85610; 85730; 86141; 87040; 93005; 93041; 96374; 96375